=== PATIENT | female | born 2000 | race Caucasian/White ===

== ENCOUNTER 2019-06-30 09:49 | Day surgery (SDC) | payer BC ==
[2019-06-29 10:22] VITALS: BMI 23.6
[2019-06-30] MEDS ORDERED: Midazolam HCl 2 mg/2 ml Vial ONE (10:45)
[2019-06-30] MEDS ORDERED: Fentanyl 100 MCG/2 ML VIAL ONE (11:12)
[2019-06-30] MEDS ORDERED: Lidocaine 1% w/Epinephrine 1:100K 20 ML VIAL ONE (11:16)
[2019-06-30] MEDS ORDERED: Bupivacaine 0.25% HCL 30 ML VIAL ONE (11:16)
[2019-06-30] MEDS ORDERED: Meperidine HCl/PF 25 MG/ML VIAL ONE (13:15)
[2019-06-30] MEDS ORDERED: Ketorolac Tromethamine 30 MG/ML VIAL ONE (14:27)
[2019-06-30] MEDS ORDERED: Dexamethasone 20 MG/5 ML VIAL ONE (14:27)
[2019-06-30] MEDS ORDERED: Ondansetron PF 4 MG/2 ML Vial ONE (14:27)
[2019-06-30] MEDS ORDERED: Lidocaine 1% PF 5 ML VIAL ONE (14:27)
[2019-06-30] MEDS ORDERED: diphenhydrAMINE 50 MG/ML VIAL ONE (14:27)
[2019-06-30] MEDS ORDERED: PROPOFOL 200 MG/20 ML VIAL ONE (14:27)
[2019-06-30] MEDS ORDERED: Metoclopramide HCl 10 MG/2 ML VIAL ONE (14:27)
--- NOTE | 2019-06-30 17:08 | PDOC.OP ---
Operative Note - Operative Note Operative Note: PROCEDURE: Left breast excisional biopsy SURGEON: Av Kaiser M.D. DATE: 06/30/2019 PREOPERATIVE DIAGNOSIS: Left breast mass POSTOPERATIVE DIAGNOSIS: Left breast mass HISTORY: Patient with recently discovered large left breast mass. This causes noticeable asymmetry and the patient feels that the mass is growing larger. She did undergo core biopsy which did not show any malignancy. 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 Excision was recommended. PROCEDURE: After informed consent was obtained the patient was taken to the operating room she was placed in the supine position and anesthesia was administered. She was prepped and draped in standard sterile fashion and local anesthesia infused the skin and subcutaneous tissues lateral to the mass. A skin incision was made along the edge of the breast and dissection carried down to the mass which was dissected free circumferentially. This was smooth and firm and fairly well defined except laterally where the breast tissue was extremely dense and the margins were thus a little harder to determine. The mass was excised with a thin margin of normal breast tissue and appeared to be completely removed. This was marked for orientation with a long lateral, short superior, and loop superficial suture. The wound was irrigated and hemostasis obtained using Bovie electrocautery. Additional local anesthesia was infused for postoperative pain control. The subcutaneous tissues were reapproximated in 2 layers and the skin was closed with a running subcuticular 4-0 Monocryl suture. Additional local anesthesia was infused into the biopsy cavity for postoperative pain control. Dermabond dressings were placed and once this was dry a fluffs compression dressing was placed. The patient was taken to recovery in good condition. Estimated blood loss was minimal. Specimen is left lateral breast mass.
== END 2019-06-30 15:30 | disposition home or self-care (01) ==
LOC: SDC 09:49 → EEVIPCON 09:49 → SDC 15:30
PROVIDERS: ATTEND Surgery
PROC: 0HBU0ZZ Excision of Left Breast, Open Approach (ICD-10-PCS; principal; 2019-06-30)
DX: D24.2 Benign neoplasm of left breast (principal); Z79.899 Other long term (current) drug therapy
CPT/HCPCS: 88305; J1100; J1200; J1885; J2001; J2175; J2250; J2405; J2704; J2765; J3010; S0020